=== PATIENT | male | born 1945 | race Caucasian/White ===

== ENCOUNTER 2017-10-15 08:39 | Outpatient (CLI) | payer MEDICARE, BC ==
--- NOTE | 2017-10-15 11:00 | MRI ---
LUMBAR SPINE MRI WITHOUT CONTRAST: Date: 10/15/17 HISTORY: Lumbar radiculopathy. COMPARISON: None. TECHNIQUE: MRI lumbar spine is performed without intravenous Gadolinium administration. Multisequential, multipl elva imaging is performed. FINDINGS: Overall appropriate T1 marrow signal intensity in lumbar vertebra. Lumbar spine vertebral body height is maintained. No fracture. No significant STIR hyperintensity to suggest edema due to fracture. No evidence of ligamentous injury. Symmetric signal intensity of the psoas muscles. Conus medullaris terminates at the mid L1 level. Visualized solid organs are unremarkable. T12-L1: Adequate disc hydration. No significant central canal stenosis or foraminal narrowing. L1-L2: Adequate disc hydration. Generalized disc bulge, ligamentum flavum thickening, and facet hypertrophy result in mild central canal stenosis. Moderate right and moderate to severe left foraminal narrowing . L1-L2: There is generalized disc bulge. Ligamentum flavum thickening and facet hypertrophy are present. Mild central canal stenosis. Moderate right and moderate to severe left foraminal narrowing. L3-L4: Generalized disc bulge, ligamentum flavum thickening, and facet hypertrophy result in mild to moderat e central canal stenosis. There is narrowing of both subarticular zone with mass effect without obscu ration of both traversing L4 nerve roots. Mild right and moderate left foraminal narrowing. L4-L5: Generalized disc bulge, ligamentum flavum thickening, and facet hypertrophy result in mild to moderat e central canal stenosis. Moderate bilateral foraminal narrowing. L5-S1: Adequate disc hydration. There is a generalized disc bulge with a central disc protrusion. Mild narro wing of the left subarticular zone. Disc material abuts but does not obscure the traversing left S1 n erve root. No significant stenosis of the thecal sac. There is bilateral facet hypertrophy. Mild to m oderate bilateral foraminal narrowing. IMPRESSION: Degenerative changes of lumbar spine as above. POS: OFF
== END 2017-10-15 08:40 | disposition home or self-care (01) ==
LOC: TBSIIMAG 08:39
PROVIDERS: ATTEND Neurological Surgery
DX: M47.26 Other spondylosis with radiculopathy, lumbar region (principal)
CPT/HCPCS: 72148

== ENCOUNTER 2017-12-01 12:02 | Outpatient (CLI) | payer MEDICARE, BC ==
[2017-12-01 12:33] LABS: Estimated GFR-MDRD - POC Greater than 90
--- NOTE | 2017-12-01 14:11 | CT ---
CTA CHEST WITH CONTRAST: Date: 12/01/17 COMPARISON: MRI cervical spine dated 09/30/16. MRI lumbar spine dated 01/08/16 from [facility]. HISTORY: Thoracic aortic aneurysm. TECHNIQUE: Multiple contiguous axial images were obtained in a CTA of the chest with contrast. 3D sagittal and c oronal MIP reformats were performed. FINDINGS: The heart is normal in size without focal cardiac abnormality. No hilar or mediastinal lymphadenopath y seen. The thoracic aorta is normal in caliber without evidence of significant aneurysmal dilatation or ecta roe. The aorta measures 3.8 cm in maximum dimension adjacent to the main pulmonary artery. The great vessels are unremarkable without significant atherosclerotic disease. No suspicious pulmonary nodules are seen. No pneumothorax or pleural effusion seen. No focal infiltra stone seen in the lungs. Calcifications in the spleen and liver are likely secondary to prior granulomatous disease. The other visualized subdiaphragmatic structures are unremarkable. Degenerative changes are seen in the spine. The chest wall soft tissues are unremarkable. IMPRESSION: 1. No evidence of significant intrathoracic abnormality. 2. No evidence of thoracic aortic aneurysm. POS: [facility]
[2017-12-01] MEDS ORDERED: Iopamidol 370 76% 100 ML VIAL ONE (14:47)
== END 2017-12-01 12:03 | disposition home or self-care (01) ==
LOC: CT 12:02
PROVIDERS: ATTEND Internal Medicine Cardiovascular Disease
DX: I71.1 Thoracic aortic aneurysm, ruptured (principal)
CPT/HCPCS: 71275; 82565

== ENCOUNTER 2018-04-07 05:32 | Day surgery (SDC) | payer MEDICARE, BC ==
[2018-03-31 14:13] VITALS: BMI 35.8
--- NOTE | 2018-04-07 03:01 | HP ---
HISTORY OF PRESENT ILLNESS: Mr. Kennedy is a very pleasant 72-year-old gentleman who presented for ev aluation of roughly 30+ years of low back pain after hurting while working. bilateral anterola teral thigh numbness, particularly when standing for extended periods of time. He has an MRI perform ed at the [facility] revealing moderate canal stenosis, bilateral neural foramen at L4-L5 with now a new MRI performed this October at [facility] showing progressive changes there with severe canal na rrowing at this point. I believe, this matches his symptoms well. He has been treating this with re cent physical therapy. Epidural steroid injections have certainly helped a great deal, but had start ed to work with less efficacy. He hopes to move forward with surgery if possible. PAST MEDICAL HISTORY: Significant for hypertension, hyperlipidemia, coronary arterial disease and go ut. MEDICATIONS: Probenecid, metoprolol, fenofibrate, pravastatin, and aspirin. ALLERGIES: No known drug allergies. PHYSICAL EXAMINATION: NEUROLOGIC: The patient is alert and oriented x3. Gait is mildly antalgic. Lower extremity exam is normal. ASSESSMENT: Lumbar neurogenic claudication and lower back pain. PLAN: Dr. Tadeo met with the patient, reviewed imaging and ultimately advocated for an L4-L5 decompr ession. He explained to the patient the risks, benefits, and alternatives to the procedure. The pat sung expressed understanding and would like to move forward with surgery as discussed. I do believe the patient is mentally competent and capable of making medical decisions for himself and we will mov e forward with surgery as planned.
[2018-04-07] MEDS ORDERED: CEFAZOLIN/Water 2 GM/20 ML SYRINGE ONE ×2 (06:02→10:54)
[2018-04-07] MEDS ORDERED: Thrombin 5000 UNITS/5 ML VIAL ONE (06:16)
[2018-04-07] MEDS ORDERED: Bupivacaine HCl 0.5%/Epinephrine 1:200,000/PF 30 ml Vial ONE (06:16)
[2018-04-07] MEDS ORDERED: Fentanyl 100 MCG/2 ML VIAL ONE ×2 (06:23→08:29)
[2018-04-07] MEDS ORDERED: Tamsulosin HCl 0.4 MG CAP ONE (08:44)
--- NOTE | 2018-04-07 11:02 | OP ---
DATE OF PROCEDURE: 04/07/2018 SURGEON: Curt Tadeo M.D. [employer] OPERATOR: Etienne Leroy PA-C. INDICATION: Pain. DIAGNOSIS: Lumbar stenosis. PROCEDURE: L4-5 lumbar decompression. ANESTHESIA: General. TECHNIQUE: The patient was brought in to the operating room and placed under general anesthesia. Fl ipped from a supine to a prone position on the operating room table. A linear incision was planned o sepideh the L4-L5 segment. After prepping and draping and after an appropriate operative pause, the inci nura was created. After placing self-retaining retractors and confirmed the appropriate level with C -arm fluoroscopy, an Adson rongeur was used to remove the spinous process at L4-5. High-speed cuttin g drill bit as well as 2, 3 and 4 mm Kerrisons used to decompress the L4-L5 segment. After decompres sing the area, the wound was irrigated. Hemostasis was maintained throughout. The wound was then cl osed in anatomic layers and a pressure dressing was applied. There were no known procedural complica tions.
[2018-04-07] MEDS ORDERED: Glycopyrrolate 0.2 MG/ML 5 ML SYRINGE ONE (13:19)
[2018-04-07] MEDS ORDERED: Dexamethasone 20 MG/5 ML VIAL ONE (13:19)
[2018-04-07] MEDS ORDERED: PROPOFOL 200 MG/20 ML VIAL ONE (13:19)
[2018-04-07] MEDS ORDERED: ePHEDrine/0.9% NaCl/PF SYRINGE 50 mg/10 ml ONE (13:19)
[2018-04-07] MEDS ORDERED: Ondansetron PF 4 MG/2 ML Vial ONE (13:19)
[2018-04-07] MEDS ORDERED: Lidocaine 1% PF 5 ML VIAL ONE (13:19)
[2018-04-07] MEDS ORDERED: PHENYLEPHRINE-NS 100 MCG/ML 10 ML SYRINGE ONE (13:19)
== END 2018-04-07 10:50 | disposition home or self-care (01) ==
LOC: SDC 05:32
PROVIDERS: ATTEND Neurological Surgery
PROC: 01NB0ZZ Release Lumbar Nerve, Open Approach (ICD-10-PCS; principal; 2018-04-07)
DX: M48.062 Spinal stenosis, lumbar region with neurogenic claudication (principal); M54.16 Radiculopathy, lumbar region; I10 Essential (primary) hypertension; E78.00 Pure hypercholesterolemia, unspecified; I25.10 Atherosclerotic heart disease of native coronary artery without angina pectoris; M10.9 Gout, unspecified; Z79.82 Long term (current) use of aspirin; Z79.899 Other long term (current) drug therapy
CPT/HCPCS: 76001; 96374; 96375; J0131; J0670; J1100; J2001; J2405; J2704; J3010

== ENCOUNTER 2018-12-21 12:44 | Outpatient (CLI) | payer MEDICARE, BC ==
--- NOTE | 2018-12-21 14:34 | RAD ---
ABDOMEN TWO VIEWS: HISTORY: Abdominal pain. TECHNIQUE: Supine and upright views obtained. FINDINGS: Scattered stool and gas seen throughout the colon. Small bowel gas pattern unremarkable. No evidenc e of free intraperitoneal air. Mild gaseous distention of the stomach. No soft tissue mass. A calc ific density overlies the right renal outline and may represent a small renal calculus. IMPRESSION: Prominent stool throughout the colon. POS: [facility]
== END 2018-12-21 12:45 | disposition home or self-care (01) ==
LOC: BICRAD 12:44
PROVIDERS: ATTEND Physician Assistant Medical
DX: R10.30 Lower abdominal pain, unspecified (principal); R19.4 Change in bowel habit; Z86.010 Personal history of colon polyps
CPT/HCPCS: 74019